=== PATIENT | female | born 1940 | race Caucasian/White ===

== ENCOUNTER 2018-07-10 00:19 | Inpatient (IN) | payer MEDICARE, BC ==
[~2018-07-10] VITALS: Ht 160 cm; Wt 59.7 kg
[2018-07-10] MEDS ORDERED: MAG HYDROX/AL HYDROX/SIMETH 30 ML UDC PO PRN (01:00)
[2018-07-10] MEDS ORDERED: MAGNESIUM HYDROXIDE 30 ML UDC PO PRN (01:00)
[2018-07-10] MEDS ORDERED: TEMAZEPAM 7.5 MG CAPSULE PO PRN (01:00)
[2018-07-10] MEDS ORDERED: ACETAMINOPHEN 325 MG TABLET PO PRN (01:00)
[2018-07-10] MEDS ORDERED: LEVO50TA8 PO (01:12)
[2018-07-10] MEDS ORDERED: GABA600T12 PO (01:12)
[2018-07-10] MEDS ORDERED: ATOR10TA PO (01:12)
[2018-07-10] MEDS ORDERED: DIAZ5TAB4 PO (01:12)
[2018-07-10] MEDS ORDERED: LORA0.5T PO (01:12)
[2018-07-10] MEDS ORDERED: MIRT15TA7 PO (01:12)
[2018-07-10] MEDS ORDERED: TRAZ-213 PO (01:12)
[2018-07-10 01:45] VITALS: BP 115/64
[2018-07-10 07:38] LABS: ALANINE AMINOTRANSFERASE 24 U/L (12-78); ALBUMIN 3.2 g/dL (3.4-5.0); ALKALINE PHOSPHATASE 71 U/L (46-116); ASPARTATE AMINOTRANSFERASE 18 U/L (15-37); BILIRUBIN,TOTAL 0.4 mg/dL (0.2-1.0); CALCIUM, SERUM 8.7 mg/dL (8.5-10.1); CARBON DIOXIDE 26 mmol/L (21-32); CHLORIDE 106 mmol/L (98-107); CREATININE 0.8 mg/dL (0.6-1.3); GLUCOSE 94 mg/dL (74-106); POTASSIUM 4.5 mmol/L (3.5-5.1); SODIUM SERUM 141 mmol/L (136-145); TOTAL PROTEIN, SERUM 6.3 g/dL (6.4-8.2); UREA NITROGEN, BLOOD 19 mg/dL (7-18)
[2018-07-10 07:41] LABS: CHOLESTEROL 225 mg/dL (<200); HDL CHOLESTEROL 65 mg/dL (40-60); LDL 148 mg/dL (0-99); TRIGLYCERIDES 92 mg/dL (30-150)
[2018-07-10 08:00] VITALS: BP 84/50
[2018-07-10 16:00] VITALS: BP 124/76
[2018-07-10] MEDS: MIRTAZAPINE 15 MG TABLET PO SCH (17:23)
[2018-07-10] MEDS: TRAZODONE 50 MG TABLET PO SCH (17:24)
[2018-07-10] MEDS ORDERED: GABAPENTIN 400 MG CAPSULE PO SCH ×3 (17:30→22:00)
[2018-07-10] MEDS ORDERED: GABAPENTIN 300 MG CAPSULE PO SCH (17:30)
[2018-07-10] MEDS: LORAZEPAM 0.5 MG TABLET PO PRN (17:33)
[2018-07-10 20:17] VITALS: BP 104/57
[2018-07-11] MEDS: LEVOTHYROXINE SODIUM 50 MCG TABLET PO SCH (07:43)
[2018-07-11 08:00] VITALS: BP 105/57
[2018-07-11] MEDS: DIAZEPAM 5 MG TABLET PO SCH (09:32)
[2018-07-11] MEDS: ATORVASTATIN 10 MG TABLET PO SCH (09:32)
[2018-07-11] MEDS: GABAPENTIN 300 MG CAPSULE PO SCH ×2 (13:48→16:48)
[2018-07-11 16:00] VITALS: BP 120/61
[2018-07-11] MEDS: MIRTAZAPINE 15 MG TABLET PO SCH (16:48)
[2018-07-11] MEDS: TRAZODONE 50 MG TABLET PO SCH (16:48)
[2018-07-11] MEDS: LORAZEPAM 0.5 MG TABLET PO PRN (16:52)
[2018-07-11 20:07] VITALS: BP 107/72
[2018-07-12] MEDS: DIAZEPAM 5 MG TABLET PO SCH (07:57)
[2018-07-12] MEDS: LEVOTHYROXINE SODIUM 50 MCG TABLET PO SCH (07:57)
[2018-07-12] MEDS: GABAPENTIN 300 MG CAPSULE PO SCH ×3 (07:57→16:25)
[2018-07-12 08:00] VITALS: BP 109/55
[2018-07-12] MEDS: ATORVASTATIN 10 MG TABLET PO SCH (08:00)
[2018-07-12] MEDS: NEOMY SULF/BACITRAC ZN/POLY 15 GM TUBE TP SCH (11:09)
[2018-07-12 16:00] VITALS: BP 123/55
[2018-07-12] MEDS: MIRTAZAPINE 15 MG TABLET PO SCH (16:25)
[2018-07-12] MEDS: TRAZODONE 50 MG TABLET PO SCH (16:25)
[2018-07-12 20:00] VITALS: BP 100/60
[2018-07-12] MEDS: LORAZEPAM 0.5 MG TABLET PO PRN (21:18)
[2018-07-13 08:00] VITALS: BP 108/62
[2018-07-13] MEDS: GABAPENTIN 300 MG CAPSULE PO SCH ×3 (08:17→16:13)
[2018-07-13] MEDS: DIAZEPAM 5 MG TABLET PO SCH (08:17)
[2018-07-13] MEDS: LEVOTHYROXINE SODIUM 50 MCG TABLET PO SCH (08:17)
[2018-07-13] MEDS: ATORVASTATIN 10 MG TABLET PO SCH (08:17)
[2018-07-13] MEDS: NEOMY SULF/BACITRAC ZN/POLY 15 GM TUBE TP SCH (08:28)
[2018-07-13 16:00] VITALS: BP 112/69
[2018-07-13] MEDS: TRAZODONE 50 MG TABLET PO SCH (16:13)
[2018-07-13] MEDS: MIRTAZAPINE 15 MG TABLET PO SCH (16:13)
[2018-07-13] MEDS: LORAZEPAM 0.5 MG TABLET PO PRN (18:14)
[2018-07-13 20:42] VITALS: BP 106/51
[2018-07-14 08:00] VITALS: BP 121/63
[2018-07-14] MEDS: DIAZEPAM 5 MG TABLET PO SCH (08:43)
[2018-07-14] MEDS: GABAPENTIN 300 MG CAPSULE PO SCH ×3 (08:43→16:39)
[2018-07-14] MEDS: LEVOTHYROXINE SODIUM 50 MCG TABLET PO SCH (08:44)
[2018-07-14] MEDS: ATORVASTATIN 10 MG TABLET PO SCH (08:44)
[2018-07-14] MEDS: NEOMY SULF/BACITRAC ZN/POLY 15 GM TUBE TP SCH (09:33)
[2018-07-14 16:02] VITALS: BP 115/72
[2018-07-14] MEDS: TRAZODONE 50 MG TABLET PO SCH (16:39)
[2018-07-14] MEDS: MIRTAZAPINE 15 MG TABLET PO SCH (16:39)
[2018-07-14 20:00] VITALS: BP 108/53
[2018-07-14] MEDS: LORAZEPAM 0.5 MG TABLET PO PRN (21:26)
[2018-07-15 08:04] VITALS: BP 110/57
[2018-07-15] MEDS: GABAPENTIN 300 MG CAPSULE PO SCH ×3 (08:27→16:10)
[2018-07-15] MEDS: DIAZEPAM 5 MG TABLET PO SCH (08:27)
[2018-07-15] MEDS: ATORVASTATIN 10 MG TABLET PO SCH (08:27)
[2018-07-15] MEDS: LEVOTHYROXINE SODIUM 50 MCG TABLET PO SCH (08:27)
[2018-07-15] MEDS: NEOMY SULF/BACITRAC ZN/POLY 15 GM TUBE TP SCH (08:58)
[2018-07-15] MEDS: TRAZODONE 50 MG TABLET PO SCH (16:10)
[2018-07-15] MEDS: MIRTAZAPINE 15 MG TABLET PO SCH (16:18)
[2018-07-15 16:27] VITALS: BP 109/50
[2018-07-15 20:00] VITALS: BP 111/53
[2018-07-15] MEDS: LORAZEPAM 0.5 MG TABLET PO PRN (21:18)
[2018-07-16] MEDS: ATORVASTATIN 10 MG TABLET PO SCH (07:46)
[2018-07-16] MEDS: LEVOTHYROXINE SODIUM 50 MCG TABLET PO SCH (07:46)
[2018-07-16] MEDS: DIAZEPAM 5 MG TABLET PO SCH (07:46)
[2018-07-16] MEDS: GABAPENTIN 300 MG CAPSULE PO SCH ×3 (07:46→17:04)
[2018-07-16 08:00] VITALS: BP 100/57
[2018-07-16] MEDS: NEOMY SULF/BACITRAC ZN/POLY 15 GM TUBE TP SCH (12:24)
[2018-07-16] MEDS: LORAZEPAM 0.5 MG TABLET PO PRN ×2 (12:26→23:00)
[2018-07-16 16:00] VITALS: BP 104/60
[2018-07-16] MEDS: TRAZODONE 50 MG TABLET PO SCH (17:04)
[2018-07-16] MEDS: MIRTAZAPINE 15 MG TABLET PO SCH (17:04)
[2018-07-16 20:07] VITALS: BP 111/54
[2018-07-17 08:00] VITALS: BP 106/59
[2018-07-17 08:18] LABS: BASOPHILS % (AUTO) 0.8 % (0.0-2.0); HEMATOCRIT 38 % (33-45); HEMOGLOBIN 12.9 g/dL (11.5-14.8); LYMPHOCYTES # (AUTO) 2.3 /CMM (0.8-4.8); LYMPHOCYTES % (AUTO) 47.5 % (20.0-44.0); MEAN CORPUSCULAR HGB CONC 34 g/dl (31.0-36.0); MEAN CORPUSCULAR VOLUME 85 fL (82-100); MONOCYTES # (AUTO) 0.4 /CMM (0.1-1.30); MONOCYTES % (AUTO) 8.8 % (2.0-12.0); NEUTROPHILS % (AUTO) 40.9 % (43.0-81.0); PLATELET COUNT (AUTO) 268 /CMM (150-450); RED BLOOD CELL COUNT(AUTO) 4.47 MIL/uL (4.0-5.2); WHITE BLOOD COUNT (AUTO) 4.8 K/uL (4.3-11.0)
[2018-07-17] MEDS: GABAPENTIN 300 MG CAPSULE PO SCH ×3 (08:24→16:48)
[2018-07-17] MEDS: DIAZEPAM 5 MG TABLET PO SCH (08:24)
[2018-07-17] MEDS: ATORVASTATIN 10 MG TABLET PO SCH (08:24)
[2018-07-17] MEDS: LEVOTHYROXINE SODIUM 50 MCG TABLET PO SCH (08:24)
[2018-07-17] MEDS: NEOMY SULF/BACITRAC ZN/POLY 15 GM TUBE TP SCH (08:25)
[2018-07-17 08:28] LABS: CALCIUM, SERUM 8.6 mg/dL (8.5-10.1); CARBON DIOXIDE 30 mmol/L (21-32); CHLORIDE 107 mmol/L (98-107); CREATININE 0.7 mg/dL (0.6-1.3); GLUCOSE 84 mg/dL (74-106); SODIUM SERUM 144 mmol/L (136-145); UREA NITROGEN, BLOOD 13 mg/dL (7-18)
[2018-07-17 16:08] VITALS: BP 104/63
[2018-07-17] MEDS: TRAZODONE 50 MG TABLET PO SCH (16:46)
[2018-07-17] MEDS: MIRTAZAPINE 15 MG TABLET PO SCH (16:46)
[2018-07-17 20:00] VITALS: BP 101/56
[2018-07-17] MEDS: LORAZEPAM 0.5 MG TABLET PO PRN (21:34)
[2018-07-18 08:00] VITALS: BP 143/72
[2018-07-18] MEDS: LEVOTHYROXINE SODIUM 50 MCG TABLET PO SCH (08:12)
[2018-07-18] MEDS: ATORVASTATIN 10 MG TABLET PO SCH (08:12)
[2018-07-18] MEDS: NEOMY SULF/BACITRAC ZN/POLY 15 GM TUBE TP SCH (08:12)
[2018-07-18] MEDS: GABAPENTIN 300 MG CAPSULE PO SCH ×2 (08:12→12:11)
[2018-07-18] MEDS: DIAZEPAM 5 MG TABLET PO SCH (08:12)
== END 2018-07-18 14:00 | disposition home or self-care (01) | DRG 885 ==
LOC: GPS 00:19
PROVIDERS: ADMIT Psychiatry & Neurology Psychiatry; ATTEND Psychiatry & Neurology Psychiatry
DX: F33.2 Major depressive disorder, recurrent severe without psychotic features (principal); N17.0 Acute kidney failure with tubular necrosis; E44.1 Mild protein-calorie malnutrition; E03.9 Hypothyroidism, unspecified; E78.5 Hyperlipidemia, unspecified; M79.7 Fibromyalgia; F41.9 Anxiety disorder, unspecified; F29 Unspecified psychosis not due to a substance or known physiological condition; S11.91XA Laceration without foreign body of unspecified part of neck, initial encounter; E88.09 Other disorders of plasma-protein metabolism, not elsewhere classified; S61.512A Laceration without foreign body of left wrist, initial encounter; S61.511A Laceration without foreign body of right wrist, initial encounter; X83.8XXA Intentional self-harm by other specified means, initial encounter; Y93.9 Activity, unspecified; Y92.009 Unspecified place in unspecified non-institutional (private) residence as the place of occurrence of the external cause; Z68.23 Body mass index [BMI] 23.0-23.9, adult; Z96.659 Presence of unspecified artificial knee joint
CPT/HCPCS: 36415; 80048-TC; 80053-TC; 80061-TC; 85025-TC; 87081-TC; A6253; A6402